=== PATIENT | female | born 1975 | race Caucasian/White ===

== ENCOUNTER 2019-05-13 14:03 | Emergency (ER) | payer BC ==
[~2019-05-13] VITALS: Ht 154.9 cm; Wt 45.4 kg
[~2019-05-13 14:03] MED LIST: BISA10SU8 RC; CEPH-569 PO; HYDR-3974 PO; MAGN400O6 PO; METH4TAB16 PO
--- NOTE | 2019-05-13 14:35 | NUR ---
left forearm and hand pain s/p cat bite. 5/10 pain scale. on room air, breathing evenly and unlabored. kept comfortable, will continue to monitor accordingly.
[2019-05-13] MEDS ORDERED: TDAP [DIPH/PERTUSSIS/TET] 0.5 ML VIAL IM ONE ×2 (15:15→15:30)
[2019-05-13] MEDS ORDERED: IBUPROFEN 400 MG TABLET ONE (15:15)
[2019-05-13] MEDS ORDERED: IBUPROFEN 400 MG TABLET PO ONE (15:30)
[2019-05-13 15:45] VITALS: BP 135/81
--- NOTE | 2019-05-13 15:46 | NUR ---
Patient discharged to home in stable condition. Written and verbal after care instructions given. Patient verbalizes understanding of instruction.
== END 2019-05-13 15:46 | disposition home or self-care (01) ==
LOC: ER 14:03
DX: S51.832A Puncture wound without foreign body of left forearm, initial encounter (principal); S61.432A Puncture wound without foreign body of left hand, initial encounter; Z98.890 Other specified postprocedural states; Z79.899 Other long term (current) drug therapy; W55.01XA Bitten by cat, initial encounter; Y93.89 Activity, other specified; Y92.89 Other specified places as the place of occurrence of the external cause; Y99.8 Other external cause status
CPT/HCPCS: 90715

== ENCOUNTER 2025-05-04 21:20 | Inpatient (IN) | payer BC ==
[~2025-05-04] VITALS: Ht 154.9 cm; Wt 52.3 kg
[2025-05-04] MEDS ORDERED: ACETAMINOPHEN 325 MG TABLET ONE (23:23)
[2025-05-04] MEDS: ACETAMINOPHEN 325 MG TABLET PO ONE (23:23)
[2025-05-04 23:36] LABS: PLATELET COUNT (AUTO) 269 K/uL (150-450); RED BLOOD CELL COUNT(AUTO) 3.92 MIL/uL (4.0-5.2); RED CELL DISTRIBUTION WIDTH 13.6 % (11.5-15.0); WHITE BLOOD COUNT (AUTO) 6.0 K/uL (4.3-11.0)
[2025-05-04 23:45] LABS: CALCIUM, SERUM 8.9 mg/dL (8.5-10.1); CREATININE 0.8 mg/dL (0.6-1.3); SODIUM SERUM 141 mmol/L (136-145); UREA NITROGEN, BLOOD 10 mg/dL (7-18)
[2025-05-04 23:56] LABS: ASPARTATE AMINOTRANSFERASE 12 U/L (15-37); NT-PRO BNP 1709 pg/mL (0-125); TOTAL PROTEIN, SERUM 7.2 g/dL (6.4-8.2)
[2025-05-05] MEDS ORDERED: IV NS 0.9% 250 ML IV ONE (00:47)
[2025-05-05] MEDS ORDERED: IOHEXOL-350 100 ML VIAL IV ONE (00:47)
[2025-05-05] MEDS ORDERED: CT SWABBABLE VALVE TRANS SET 1 EA INFUS.SET MC ONE (00:47)
[2025-05-05 02:06] LABS: INR 1.02 (0.91-1.10)
[2025-05-05] MEDS ORDERED: HEPARIN SODIUM, PORCINE 5000 UNITS/1 ML VIAL ONE (04:28)
[2025-05-05] MEDS ORDERED: HEPARIN INFUSION/D5W 500 ML IV ONE (04:28)
[2025-05-05] MEDS: HEPARIN SODIUM, PORCINE 5000 UNITS/1 ML VIAL IV ONE (04:30)
[2025-05-05] MEDS: BUPRENORPHINE HCL 2 MG TAB.SUBL SL ONE (04:30)
[2025-05-05] MEDS: HEPARIN INFUSION/D5W 500 ML IV PRN ×2 (05:00→13:44)
[2025-05-05] MEDS ORDERED: LORAZEPAM INJ 2 MG/ML VIAL ONE (05:10)
[2025-05-05] MEDS ORDERED: BUPRENORPHINE HCL 2 MG TAB.SUBL SL ONE (05:10)
[2025-05-05] MEDS: LORAZEPAM INJ 2 MG/ML VIAL IV ONE (05:14)
[2025-05-05] MEDS: IV NS 0.9% 1,000 ML BAG IV ONE (05:38)
[2025-05-05] MEDS ORDERED: ONDANSETRON HCL/PF 4 MG/2 ML VIAL IVP PRN (07:00)
[2025-05-05] MEDS ORDERED: MAGNESIUM HYDROXIDE 30 ML UDC PO PRN (07:00)
[2025-05-05] MEDS ORDERED: ACETAMINOPHEN 325 MG TABLET PO PRN (07:00)
[2025-05-05] MEDS ORDERED: MAG HYDROX/AL HYDROX/SIMETH 30 ML UDC PO PRN (07:00)
[2025-05-05] MEDS: PANTOPRAZOLE 40 MG TABLET.DR PO SCH (07:30)
[2025-05-05] MEDS ORDERED: PANT20TA17 PO (07:31)
[2025-05-05] MEDS ORDERED: PROGESTERONE PO (07:31)
[2025-05-05] MEDS ORDERED: SERT100T PO (07:31)
[2025-05-05] MEDS ORDERED: ESZO3TAB27 PO (07:31)
[2025-05-05] MEDS ORDERED: DIAZ5TAB4 PO (07:31)
[2025-05-05] MEDS ORDERED: ESTROGEN PATCH TD (07:31)
[2025-05-05] MEDS ORDERED: SUBUTEX PO (07:31)
[2025-05-05] MEDS ORDERED: LISD10CA PO (07:31)
[2025-05-05 10:14] LABS: PLATELET COUNT (AUTO) 254 K/uL (150-450); RED BLOOD CELL COUNT(AUTO) 3.58 MIL/uL (4.0-5.2); RED CELL DISTRIBUTION WIDTH 13.3 % (11.5-15.0); WHITE BLOOD COUNT (AUTO) 5.3 K/uL (4.3-11.0)
[2025-05-05 10:27] LABS: INR 1.09 (0.91-1.10)
[2025-05-05 10:42] LABS: ASPARTATE AMINOTRANSFERASE 8.0 U/L (15-37); CALCIUM, SERUM 8.5 mg/dL (8.5-10.1); CREATININE 0.8 mg/dL (0.6-1.3); PHOSPHORUS 3.3 mg/dL (2.5-4.9); SODIUM SERUM 144.0 mmol/L (136-145); TOTAL PROTEIN, SERUM 6.5 g/dL (6.4-8.2); UREA NITROGEN, BLOOD 7.0 mg/dL (7-18)
[2025-05-05 11:04] VITALS: BP 104/83; TEMP 98; O2SAT 99
[2025-05-05 12:23] LABS: LDL 72.0 mg/dL (0-99)
== END 2025-05-05 14:21 | disposition left against medical advice (07) | DRG 175 ==
LOC: ER 21:25 → TELE1 05-05 03:41
PROVIDERS: ADMIT Internal Medicine; ATTEND Internal Medicine
DX: I26.99 Other pulmonary embolism without acute cor pulmonale (principal); I21.4 Non-ST elevation (NSTEMI) myocardial infarction; F19.11 Other psychoactive substance abuse, in remission; F41.9 Anxiety disorder, unspecified; Z87.891 Personal history of nicotine dependence; Z79.899 Other long term (current) drug therapy; Z98.890 Other specified postprocedural states; Z79.890 Hormone replacement therapy
CPT/HCPCS: 36415; 71045-TC; 80048-TC; 80061-TC; 80076-TC; 83735-TC; 83880; 84100-TC; 84484-TC; 84702-TC; 85025-TC; 85378-TC; 85610-TC; 85730-TC; 87081-TC; 93307-TC; 93970-TC; A4223; G0378; J1644; J2060; J7030; J7050; Q9967